=== PATIENT | male | born 1955 | race Caucasian/White ===

== ENCOUNTER 2019-06-19 08:50 | Observation (INO) | payer MEDICAID ==
[~2019-06-19] VITALS: Ht 177.8 cm; Wt 97.2 kg
[2019-06-19 08:55] VITALS: BP 105/81
[2019-06-19] MEDS ORDERED: ASPIRIN 81 MG TAB.CHEW PO ONE (09:05)
[2019-06-19 09:32] LABS: EOSINOPHILS # (AUTO) 0.2 K/uL (0-0.4); EOSINOPHILS % (AUTO) 4.8 % (0.0-4.0); HEMATOCRIT 49.5 % (36-52); HEMOGLOBIN 16.1 g/dL (12.0-18.0); LYMPHOCYTES % (AUTO) 25.4 % (20.5-51.1); MEAN CORPUSCULAR HEMOGLOBIN 34 pg (27-31); MEAN CORPUSCULAR HGB CONC 33 g/dL (33-37); MEAN CORPUSCULAR VOLUME 104.4 fL (80-94); MONOCYTES # (AUTO) 0.4 K/uL (0.8-1.0); MONOCYTES % (AUTO) 9.7 % (1.7-9.3); NEUTROPHILS # (AUTO) 2.2 K/uL (1.8-7.7); NEUTROPHILS % (AUTO) 59.1 % (42.2-75.2); PLATELET COUNT (AUTO) 150 K/uL (140-450); RED BLOOD CELL COUNT(AUTO) 4.74 MIL/uL (4.20-6.10); RED CELL DISTRIBUTION WIDTH 14.1 % (11.6-13.7); WHITE BLOOD COUNT (AUTO) 3.8 K/uL (4.8-10.8)
[2019-06-19 09:38] LABS: PROTHROMBIN TIME 9.1 secs (10.8-13.4)
[2019-06-19 09:49] LABS: ALBUMIN 3.8 g/dL (3.4-5.0); ANION GAP 13.4 (8-16); CARBON DIOXIDE 34.4 mmol/L (21-32); POTASSIUM 4.8 mmol/L (3.5-5.1); THYROID STIMULATING HORMONE 0.84 uIU/mL (0.34-3.74); TOTAL BILIRUBIN 0.6 mg/dL (0.0-1.0)
[2019-06-19 09:51] LABS: CREATININE 8.1 mg/dL (0.6-1.3)
[2019-06-19] MEDS ORDERED: HYDROcodone/APAP 5/325 MG 1 TAB TAB PO PRN (11:10)
[2019-06-19] MEDS ORDERED: ACETAMINOPHEN 325 MG TAB PO PRN (11:10)
[2019-06-19] MEDS ORDERED: ALBUTEROL 0.083% 2.5 MG/3 ML NEBU INH PRN (11:10)
[2019-06-19] MEDS ORDERED: ONDANSETRON 4 MG/2 ML VIAL IVP PRN (11:10)
[2019-06-19 12:00] VITALS: BP 100/62
[2019-06-19 16:00] VITALS: BP 106/78
[2019-06-19 20:00] VITALS: BP 96/66
[2019-06-19] MEDS: CARVEDILOL 6.25 MG TAB PO SCH (21:00)
[2019-06-20] VITALS: BP 117/85
[2019-06-20 04:00] VITALS: BP 110/78
[2019-06-20 06:51] LABS: BASOPHILS % (AUTO) 0.6 % (0.0-2.0); EOSINOPHILS # (AUTO) 0.3 K/uL (0-0.4); EOSINOPHILS % (AUTO) 6.3 % (0.0-4.0); HEMATOCRIT 43.3 % (36-52); HEMOGLOBIN 14.6 g/dL (12.0-18.0); LYMPHOCYTES # (AUTO) 1.5 K/uL (2.0-11.5); LYMPHOCYTES % (AUTO) 34.7 % (20.5-51.1); MEAN CORPUSCULAR HEMOGLOBIN 35 pg (27-31); MEAN CORPUSCULAR HGB CONC 34 g/dL (33-37); MEAN CORPUSCULAR VOLUME 104.1 fL (80-94); MONOCYTES # (AUTO) 0.4 K/uL (0.8-1.0); MONOCYTES % (AUTO) 9.7 % (1.7-9.3); NEUTROPHILS # (AUTO) 2.1 K/uL (1.8-7.7); NEUTROPHILS % (AUTO) 48.7 % (42.2-75.2); PLATELET COUNT (AUTO) 150 K/uL (140-450); RED BLOOD CELL COUNT(AUTO) 4.16 MIL/uL (4.20-6.10); RED CELL DISTRIBUTION WIDTH 14.1 % (11.6-13.7); WHITE BLOOD COUNT (AUTO) 4.3 K/uL (4.8-10.8)
[2019-06-20 07:08] LABS: ANION GAP 12.5 (8-16); CARBON DIOXIDE 34.8 mmol/L (21-32)
[2019-06-20 08:00] VITALS: BP 114/63
[2019-06-20 08:05] LABS: POTASSIUM 6.3 mmol/L (3.5-5.1)
[2019-06-20 08:06] LABS: CREATININE 11.3 mg/dL (0.6-1.3)
[2019-06-20] MEDS ORDERED: ASPIRIN 81 MG TAB.CHEW PO SCH (09:00)
[2019-06-20] MEDS: CARVEDILOL 6.25 MG TAB PO SCH (09:02)
[2019-06-20 12:00] VITALS: BP 100/79
[2019-06-20] MEDS ORDERED: ASPI81CT95 PO (13:06)
[2019-06-20] MEDS ORDERED: CARV6.252 PO (13:06)
== END 2019-06-20 16:49 | disposition home or self-care (01) ==
LOC: MED 08:50 → INTOOBSV 11:10 → MTU 11:10
PROVIDERS: ADMIT Hospitalist; ATTEND Hospitalist
DX: I47.1 Supraventricular tachycardia (principal); I12.0 Hypertensive chronic kidney disease with stage 5 chronic kidney disease or end stage renal disease; E83.39 Other disorders of phosphorus metabolism; D64.9 Anemia, unspecified; N18.6 End stage renal disease; Z99.2 Dependence on renal dialysis; Z87.891 Personal history of nicotine dependence
CPT/HCPCS: 36415; 71045; 80048; 80053; 83735; 84100; 84443; 84484; 85025; 85610; 85730; 87081; 93005; 96372; 99285; G0378; J1644; J7030; Q0092

== ENCOUNTER 2019-06-21 07:23 | Emergency (ER) | payer MEDICAID ==
[~2019-06-21] VITALS: Ht 177.8 cm; Wt 84.8 kg
[~2019-06-21 07:23] MED LIST: ASPI81CT95 PO; CARV6.252 PO
--- NOTE | 2019-06-21 07:23 | NUR ---
PT. BIBA TAKEN TO BED 7
[2019-06-21 07:31] VITALS: BP 113/78
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
--- NOTE | 2019-06-21 07:59 | NUR ---
XRAY AT BEDSIDE
[2019-06-21 08:45] LABS: ALBUMIN 3.3 g/dL (3.4-5.0); ANION GAP 9.9 (8-16); CARBON DIOXIDE 36.7 mmol/L (21-32); POTASSIUM 4.6 mmol/L (3.5-5.1); TOTAL BILIRUBIN 0.6 mg/dL (0.0-1.0)
[2019-06-21 08:48] LABS: CREATININE 6.2 mg/dL (0.6-1.3)
[2019-06-21 08:57] LABS: HEMATOCRIT 41.5 % (36-52); HEMOGLOBIN 13.8 g/dL (12.0-18.0); MEAN CORPUSCULAR HEMOGLOBIN 35 pg (27-31); MEAN CORPUSCULAR HGB CONC 33 g/dL (33-37); MEAN CORPUSCULAR VOLUME 103.8 fL (80-94); PLATELET COUNT (AUTO) 138 K/uL (140-450); RED CELL DISTRIBUTION WIDTH 14.1 % (11.6-13.7); WHITE BLOOD COUNT (AUTO) 7.1 K/uL (4.8-10.8)
[2019-06-21 09:03] LABS: EOSINOPHILS % (MANUAL) 2 % (0-4); LYMPHOCYTES % (MANUAL) 9 % (20-46); MONOCYTES % (MANUAL) 7 % (5-12)
--- NOTE | 2019-06-21 09:12 | NUR ---
VS STABLE, PT SITTING UPRIGHT IN BED, NO COMPLAINTS
[2019-06-21 10:30] VITALS: BP 113/89
--- NOTE | 2019-06-21 10:31 | NUR ---
Patient discharged with v/s stable. Written and verbal after care instructions given and explained. Patient verbalized understanding. Ambulatory with steady gait. All questions addressed prior to discharge. Advised to follow up with PMD.
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
== END 2019-06-21 10:31 | disposition home or self-care (01) ==
LOC: MED 07:23
DX: I47.1 Supraventricular tachycardia (principal); I13.10 Hypertensive heart and chronic kidney disease without heart failure, with stage 1 through stage 4 chronic kidney disease, or unspecified chronic kidney disease; N18.9 Chronic kidney disease, unspecified; Z79.899 Other long term (current) drug therapy; Z98.890 Other specified postprocedural states
CPT/HCPCS: 36415; 71045; 80053; 84484; 85025; 85610; 85730; 93005; 99285; Q0092

== ENCOUNTER 2024-01-12 05:30 | Emergency (ER) | payer MEDICAID ==
[~2024-01-12] VITALS: Ht 172.7 cm; Wt 90.7 kg
[2024-01-12 05:32] VITALS: BP 102/74; PULSE 115; RESP 18; TEMP 98; O2SAT 98
[2024-01-12 06:30] LABS: ANION GAP 11.3 (8-16); CALCIUM 8.8 mg/dL (8.5-10.1); CARBON DIOXIDE 33.2 mmol/L (21-32); POTASSIUM 4.5 mmol/L (3.5-5.1)
[2024-01-12 06:31] LABS: CREATININE 9.2 mg/dL (0.6-1.3)
[2024-01-12 06:57] LABS: BASOPHILS # (AUTO) 0.1 K/uL (0.00-0.22); BASOPHILS % (AUTO) 1.1 % (0.0-2.0); EOSINOPHILS # (AUTO) 0.1 K/uL (0-0.4); EOSINOPHILS % (AUTO) 0.9 % (0.0-4.0); HEMATOCRIT 44.2 % (36-52); HEMOGLOBIN 14.9 g/dL (12.0-18.0); LYMPHOCYTES # (AUTO) 1.2 K/uL (2.0-11.5); LYMPHOCYTES % (AUTO) 21.4 % (20.5-51.1); MEAN CORPUSCULAR HEMOGLOBIN 32 pg (27-31); MEAN CORPUSCULAR HGB CONC 34 g/dL (33-37); MEAN CORPUSCULAR VOLUME 93.2 fL (80-94); MONOCYTES # (AUTO) 0.9 K/uL (0.8-1.0); MONOCYTES % (AUTO) 15.7 % (1.7-9.3); NEUTROPHILS # (AUTO) 3.5 K/uL (1.8-7.7); NEUTROPHILS % (AUTO) 60.9 % (42.2-75.2); PLATELET COUNT (AUTO) 174 K/uL (140-450); RED BLOOD CELL COUNT(AUTO) 4.74 MIL/uL (4.20-6.10); RED CELL DISTRIBUTION WIDTH 15.7 % (11.6-13.7); WHITE BLOOD COUNT (AUTO) 5.7 K/uL (4.8-10.8)
[2024-01-12] MEDS: NACL 0.9% 500 ML IV ONE (07:16)
[2024-01-12] MEDS ORDERED: CALC667C3 PO (07:34)
[2024-01-12] MEDS ORDERED: CINA30TA4 PO (07:34)
[2024-01-12] MEDS ORDERED: ASPI-1856 PO (07:34)
[2024-01-12] MEDS ORDERED: MIDO10TA PO (07:34)
[2024-01-12] MEDS ORDERED: MULT-1469 PO (07:34)
[2024-01-12] MEDS ORDERED: [UNRECOGNIZED DRUG - CODE] PO (07:34)
[2024-01-12 08:36] VITALS: BP 103/75; PULSE 94; RESP 20; TEMP 98.3; O2SAT 99
== END 2024-01-12 08:39 | disposition home or self-care (01) ==
LOC: MED 05:30
DX: I95.9 Hypotension, unspecified (principal); R00.0 Tachycardia, unspecified; I12.0 Hypertensive chronic kidney disease with stage 5 chronic kidney disease or end stage renal disease; N18.6 End stage renal disease; Z99.2 Dependence on renal dialysis; Z79.899 Other long term (current) drug therapy; Z79.82 Long term (current) use of aspirin
CPT/HCPCS: 36415; 71045; 80048; 82948; 84484; 85025; 93005; 96360; 99285; J7030; Q0092